=== PATIENT | male | born 1950 | race Caucasian/White ===

== ENCOUNTER 2017-06-21 13:08 | Day surgery (SDC) | payer OTHER ==
[~2017-06-21] VITALS: Ht 162.6 cm; Wt 95.5 kg
[2017-06-21] MEDS ORDERED: ASPIRIN (13:45)
[2017-06-21] MEDS ORDERED: AMLODIPINE (13:45)
[2017-06-21] MEDS ORDERED: VALSARTAN-HCTZ (13:45)
[2017-06-21] MEDS ORDERED: VITAMIN D (13:45)
[2017-06-21 13:46] VITALS: Ht 162.6 cm; Wt 95.5 kg
[2017-06-21] MEDS ORDERED: LIDOCAINE 2% (SDV) 5 ML INJ ONE (15:54)
[2017-06-21] MEDS ORDERED: PROPOFOL 40 ML ONE (15:54)
--- NOTE | 2017-06-21 16:20 | OPPN ---
Date/Time of Note Date/Time of Note DATE: 06/21/17 TIME: 16:19 Operative Report Preoperative Diagnosis Screening Postoperative Diagnosis Diverticulosis of the colon Internal hemorrhoids No colon neoplasm is identified Operation/Procedure Performed Colonoscopy Surgeon see signature line switchboard operator assistant None Anesthesia: MAC Estimated blood loss: none Transfusion Required none Specimen None Grafts/Implants none Complications none SERGEY MARMOLEJO MD Jun 21, 2017 16:20
[2017-06-21 16:37] VITALS: BP 157/84; RESP 14
--- NOTE | 2017-06-21 20:10 | GILP ---
DATE OF PROCEDURE: 06/21/2017 NAME OF PROCEDURE: Colonoscopy. SURGEON: Sergey Archuleta MD PREOPERATIVE DIAGNOSIS: Screening colonoscopy. POSTOPERATIVE DIAGNOSES 1. Colonoscopy all the way to the cecum. 2. Diverticulosis of the colon. 3. Internal hemorrhoids. 4. No colon neoplasm was identified. INDICATION FOR THE PROCEDURE: Mr. Bernardo Hsu is a 67-year-old male patient who was scheduled f or screening colonoscopy. The procedure and possible complications were well explained to the patient. The patient understood and consented to the procedure. DESCRIPTION OF PROCEDURE: Under the influence of anesthesia, the colonoscope was carefully introduc ed in the rectum and under direct vision, it was advanced all the way to the cecum. FINDINGS: The patient had diverticulosis of the colon. He also had internal hemorrhoids. No colon neoplasm was identified. He tolerated the procedure very well and there was no complication from the procedure. At the end o f the procedure, he was awake with stable vital signs and he was discharged home to the care of his family. IMPRESSION: Please see postoperative diagnoses. PLAN: Next screening colonoscopy in 10 years. Dictated By: SERGEY DUBOIS/YOSSI Conf#: [id number] DID#: [id number]
== END 2017-06-21 19:10 | disposition home or self-care (01) ==
LOC: GIL 13:08
PROVIDERS: ATTEND Internal Medicine Gastroenterology
DX: Z12.11 Encounter for screening for malignant neoplasm of colon (principal); K57.90 Diverticulosis of intestine, part unspecified, without perforation or abscess without bleeding; K64.8 Other hemorrhoids; I10 Essential (primary) hypertension; E66.9 Obesity, unspecified; Z68.36 Body mass index [BMI] 36.0-36.9, adult